=== PATIENT | male | born 1995 | race Caucasian/White ===

== ENCOUNTER 2024-05-08 09:05 | Emergency (ER) | payer MEDICAID, SELFPAY ==
[2024-05-08 09:06] VITALS: BMI 26.4
[2024-05-08 09:11] VITALS: BP 121/76; PULSE 76; RESP 18; TEMP 36.5; O2SAT 97; BMI 28.8
--- NOTE | 2024-05-08 09:28 | EKG_ITS ---
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
--- NOTE | 2024-05-08 09:28 | XR_ITS ---
Examination: PA lateral chest 2 views TECHNIQUE: Upright PA lateral chest 2 views Exam date and time: May 08, 2024 0936 hours INDICATIONS: Coughing beginning 3 days ago. FINDINGS: Normal heart size Lungs are clear. The osseous structures are intact IMPRESSION: No active disease
--- NOTE | 2024-05-08 11:29 | EDNOTE_ITS ---
ED Chest Pain RME/HPI General Chief Complaint: Chest Pain Stated Complaint: THROBBING CHEST PAIN AND BODYACHES Time Seen by Provider: 05/08/24 09:19 Arrival date/time: 05/08/24 09:05 29-year-old male presents the emergency department today for complaints of throbbing chest pain and bodyaches patient reports cough and congestion as well. Limitations: no limitations Related Data Previous Rx's ?Medication ?Instructions ?Recorded hydrocodone 5 mg-acetaminophen 325 1 tab PO Q8H PRN pa in #8 tabs 08/21/21 mg tablet ibuprofen 600 mg tablet 600 mg PO TID PRN pain #14 t abs 08/21/21 tamsulosin 0.4 mg capsule (Flomax) 0.4 mg PO QDAY #10 caps 08/21/21 benzonatate 100 mg capsule 100 mg PO TID #14 caps 04/15 07/08 ibuprofen 600 mg tablet 600 mg PO Q6H #30 tabs 05/08 Allergies Allergy/AdvReac Type Severity Reaction Status Date / Time amoxicillin Allergy Severe Hives Verified 05/08/24 09:08 Penicillins Allergy Severe Hives Verified 05/08/24 09:08 Review of Systems Review of Systems Systems Reviewed: All systems reviewed, normal except as documented Constitutional Constitutional: Reports system reviewed and no additional complaints, except as documented, Denies fever(s) and Denies headache(s) Eyes Eyes: Reports system reviewed and no additional complaints, except as documented and Denies blurry vision ENT Ears, Nose, Mouth, and Throat: Reports system reviewed and no additional complaints, except as documented, Denies headache(s), Denies nasal congestion and Denies nasal discharge Cardiovascular Cardiovascular: Reports system reviewed and no additional complaints, except as documented, Reports chest pain and Denies dyspnea Respiratory Respiratory: Reports system reviewed and no additional complaints, except as documented, Reports chest congestion, Reports cough and Denies dyspnea Gastrointestinal Gastrointestinal: Reports system reviewed and no additional complaints, except as documented and Denies abdominal pain Integumentary/Breasts Skin/Breast: Reports system reviewed and no additional complaints, except as documented and Denies rash Neurologic Neurologic: Reports system reviewed and no additional complaints, except as documented, Reports as per HPI and Denies headache(s) Past Medical History Past Medical History NEUROLOGIC: Negative Neurological Disorders or Seizures CARDIAC: Negative Cardiac Disorders or Congestive Heart Failure RESPIRATORY: Negative Chronic Obstructive Pulmonary Disease (COPD) GASTROINTESTINAL: Positive Gastrointestinal Disorders and Gastroesophageal Reflux Disease GENITOURINARY: Negative Genitourinary Disorders or Renal Disease MUSCULOSKELETAL: Positive Musculoskeletal Disorders ENDOCRINE: Negative Endocrine Disorders, Diabetes Mellitus Type 1 or Diabetes Mellitus Type 2 HEMATOLOGIC: Negative Blood Disorders PSYCHO/SOCIAL: Positive Depression and Anxiety OTHER HISTORY: Negative Autoimmune Disease, Blood Transfusions, Blood Transfusion Reaction, Anesthesia Reactions, MRSA, Clostridium Difficile or Cancer Family History FAMILY HISTORY: Negative Family Cardiac Disorders Surgical History SURGICAL: Negative Endocrine Surgery, Ear Surgery, Abdominal Surgery, Nephrectomy, Joint Replacement, Neurologic Surgery or Mastectomy Social History SMOKING STATUS: Current every day smoker SUBSTANCE USE: marijuana ED Exam General Limitations: Present no limitations General appearance: Present alert and in no apparent distress Head Head exam: Present atraumatic Eye Eye exam: Present normal appearance, PERRL and EOMI Neck Neck exam: Present normal inspection, full ROM and trachea midline Chest Chest inspection: Present normal inspection and symmetric chest wall rise Respiratory Respiratory exam: Present other (Did not auscultate lungs patient left prior to auscultation) Abdominal Exam Abdominal exam: Present normal bowel sounds Extremities Exam Extremities exam: Present normal inspection and full ROM Back Exam Back exam: Present normal inspection and full ROM Neurological Exam Neurological exam: Present alert, oriented X3, CN II-XII intact, normal gait and reflexes normal; Absent motor sensory deficit Psychiatric Psychiatric exam: Present normal affect and normal mood Skin Skin exam: Present warm, dry, intact and normal color Course Quality Measures none Orders Category Date Time Status Bedside Influenza A&B Antigen Test NOW Care 05/08/24 09:28 Completed EKG (ED ONLY) *Do not use* NOW Care 05/08/24 09:28 Completed EKG (ED Only) Stat Exams 05/08/24 09:28 Draft XR chest 2V Stat Exams 05/08/24 09:28 Completed Vital Signs Vital signs: Vital Signs Temperature 97.7 F 05/08/24 09:11 Pulse Rate 76 05/08/24 09:11 Respiratory Rate 18 05/08/24 09:11 Blood Pressure 121/76 05/08/24 09:11 Pulse Oximetry (%) 97 05/08/24 09:11 Oxygen Delivery Method Room Air 05/08/24 09:11 O2 saturation 97% room air wnl Procedures -ED EKG Interpretation #1: Date of EK05/08/24 Time of EK:30 Rate: 78 Interpretation: Interpreted by me EKG Impression: Normal sinus rhythm, No acute ST-T changes, No ectopy, No ischemic changes, Normal QRS and Normal intervals Chest Pain MDM Narrative [facility] Narrative:: 29-year-old male presents the emergency department today for complaints of throbbing chest pain and bodyaches patient reports cough and congestion as well. On exam patient well-appearing patient does not appear ill or toxic in no acute distress patient has no tachypnea or dyspnea no increased work of breathing Imaging and EKG obtained as well as lab work Imaging is unremarkable EKG unremarkable lab work unremarkable Prior to discharge full physical exam was to be completed patient left prior to lung auscultation. Patient discharged home in no distress to follow-up with primary care doctor in the next 24 to 48 hours and for any worsening symptoms to return to the ER immediately Patient data External records reviewed:: [facility] previous records Clinical information provided by:: patient Social determinants that could affect healthcare access:: none Patient has the following chronic illnesses:: See history How is presenting disease/condition affected by chronic disease/condition?: uneffected by Evaluation data The following diagnostics were reviewed and interpreted by me:: lab results, radiology exam(s) and EKG tracing(s) Lab and/or radiology exams considered but not ordered:: Labs, radiology, EKG obtained Interpretation Summary: Reviewed by me Medications / Prescriptions Medications or Prescriptions considered but not ordered:: Rx given Medication administrations:: Rx given Consultations Consultation(s) initiated? (list below): No Diagnosis Chest Pain Differential Diagnosis: fracture of rib, pneumothorax, stable angina, atypical chest pain, st elevation myocardial infarction, costochondritis and chest pain Most likely diagnosis given after review of the tests above:: Chest pain Admission Indicated Admission indicated?: not indicated Admission Request Was there a request for admission?: No Disposition Plan Disposition Plan: Discharge Discharge Attestation Discharge Attestation: The patient and all family members were given an opportunity to ask questions and understood the discharge instructions. Discharge instructions specifically effects, indications for sooner follow up or return to the emergency department, and the expected course of current diagnosis. Patient condition: Stable Discharge Plan Plan Patient Disposition: HOME (Self Care) Disposition Comment: Stable Prescriptions/Referrals Prescriptions/Med Rec: New benzonatate 100 mg capsule 100 mg PO TID Qty: 14 0RF ibuprofen 600 mg tablet 600 mg PO Q6H Qty: 30 0RF No Action hydrocodone-acetaminophen 5-325 mg tablet 1 tab PO Q8H MDD 3 PRN (Reason: pain) Qty: 8 0RF ibuprofen 600 mg tablet 600 mg PO TID PRN (Reason: pain) Qty: 14 0RF tamsulosin [Flomax] 0.4 mg capsule 0.4 mg PO QDAY Qty: 10 0RF Referrals: No Primary/Family,Physician [Primary Care Provider] - 05/09/24 Problem List Clinical Impression: Chest pain, non-cardiac, Cough Patient/Caregiver Discharge Instructions Education Materials: ED Chest Pain, Noncardiac Additional Instructions: Please follow up with your primary care doctor in the next 24-48hrs for any worsening symptoms return here immediately Print Language: Jamaican Stand Alone Forms: [employer] Award Info., Work/School Release, Patient Portal Info Letter PA/TELEPHONE OPERATOR Supervising Physician PA/TELEPHONE OPERATOR Supervising Physician: Dr Zimmer
== END 2024-05-08 11:58 | disposition home or self-care (01) ==
PROVIDERS: Emergency Provider Emergency Medicine
DX: R07.89 Other chest pain (principal); R05.9 Cough, unspecified
CPT/HCPCS: 71046; 87400; 93005; 99283

== ENCOUNTER 2024-05-09 14:10 | Emergency (ER) | payer MEDICAID, SELFPAY ==
[2024-05-09 14:13] VITALS: BMI 26.4
[2024-05-09 14:22] VITALS: BP 125/76; PULSE 108; RESP 20; TEMP 36.7; O2SAT 96
--- NOTE | 2024-05-09 14:23 | EKG_ITS ---
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
--- NOTE | 2024-05-09 14:25 | EDNOTE_ITS ---
ED Chest Pain RME/HPI General Chief Complaint: Flu Like Symptoms Stated Complaint: COUGH, SHARP PAIN IN CHEST TO BACK, N/V X 3 DAYS Time Seen by Provider: 05/09/24 14:14 Source: patient Arrival date/time: 05/09/24 14:10 29-year-old male with no known medical history presents to the emergency room with a chief complaint of cough, right-sided sternal chest pain x 2 days, nausea, vomiting Mode of arrival: ambulatory Limitations: no limitations Related Data Previous Rx's ?Medication ?Instructions ?Recorded hydrocodone 5 mg-acetaminophen 325 1 tab PO Q8H PRN pa in #8 tabs 08/21/21 mg tablet ibuprofen 600 mg tablet 600 mg PO TID PRN pain #14 t abs 08/21/21 tamsulosin 0.4 mg capsule (Flomax) 0.4 mg PO QDAY #10 caps 08/21/21 benzonatate 100 mg capsule 100 mg PO TID #14 caps 04/15 07/08 ibuprofen 600 mg tablet 600 mg PO Q6H #30 tabs 05/08 Allergies Allergy/AdvReac Type Severity Reaction Status Date / Time amoxicillin Allergy Severe Hives Verified 05/09/24 14:16 Penicillins Allergy Severe Hives Verified 05/09/24 14:16 Review of Systems Review of Systems Systems Reviewed: All systems reviewed, normal except as documented Constitutional Constitutional: Reports system reviewed and no additional complaints, except as documented, Denies fatigue, Denies fever(s), Denies headache(s) and Denies weakness Eyes Eyes: Reports system reviewed and no additional complaints, except as documented, Denies blurry vision and Denies change in vision ENT Ears, Nose, Mouth, and Throat: Reports system reviewed and no additional complaints, except as documented, Denies otalgia, Denies headache(s), Denies nasal congestion, Denies throat swelling and Denies vertigo Cardiovascular Cardiovascular: Reports system reviewed and no additional complaints, except as documented, Reports chest pain, Reports dyspnea and Denies dyspnea on exertion Respiratory Respiratory: Reports system reviewed and no additional complaints, except as documented, Denies chest congestion, Denies cough, Reports dyspnea, Denies dyspnea on exertion and Denies wheezing Gastrointestinal Gastrointestinal: Reports system reviewed and no additional complaints, except as documented, Denies abdominal pain, Denies cramping, Denies nausea and Denies vomiting Genitourinary Genitourinary: Reports system reviewed and no additional complaints, except as documented, Denies dysuria and Denies hematuria Musculoskeletal Musculoskeletal: Reports system reviewed and no additional complaints, except as documented and Denies back pain Integumentary/Breasts Skin/Breast: Reports system reviewed and no additional complaints, except as documented and Denies wounds Neurologic Neurologic: Reports system reviewed and no additional complaints, except as documented, Denies confusion, Denies headache(s), Denies lack of coordination, Denies vertigo and Denies weakness Psychiatric Psychiatric: Reports system reviewed and no additional complaints, except as documented, Denies anxiety, Denies confusion, Denies depression, Denies paranoia, Denies suicidal ideation and Denies tactile hallucinations Endocrine Endocrine: Reports system reviewed and no additional complaints, except as documented and Denies fatigue Hematologic/Lymphatic Hematologic/Lymphatic: Reports system reviewed and no additional complaints, except as documented and Denies lymphadenopathy Allergic/Immunologic Allergic/Immunologic: Reports system reviewed and no additional complaints, except as documented, Denies throat swelling, Denies urticaria and Denies wheezing Past Medical History Past Medical History NEUROLOGIC: Negative Neurological Disorders or Seizures CARDIAC: Negative Cardiac Disorders or Congestive Heart Failure RESPIRATORY: Negative Chronic Obstructive Pulmonary Disease (COPD) GASTROINTESTINAL: Positive Gastrointestinal Disorders and Gastroesophageal Reflux Disease GENITOURINARY: Negative Genitourinary Disorders or Renal Disease MUSCULOSKELETAL: Positive Musculoskeletal Disorders ENDOCRINE: Negative Endocrine Disorders, Diabetes Mellitus Type 1 or Diabetes Mellitus Type 2 HEMATOLOGIC: Negative Blood Disorders PSYCHO/SOCIAL: Positive Depression and Anxiety OTHER HISTORY: Negative Autoimmune Disease, Blood Transfusions, Blood Transfusion Reaction, Anesthesia Reactions, MRSA, Clostridium Difficile or Cancer Family History FAMILY HISTORY: Negative Family Cardiac Disorders Surgical History SURGICAL: Negative Endocrine Surgery, Ear Surgery, Abdominal Surgery, Nephrectomy, Joint Replacement, Neurologic Surgery or Mastectomy Social History SMOKING STATUS: Current every day smoker SUBSTANCE USE: marijuana ED Exam General Limitations: Present no limitations General appearance: Present alert and in no apparent distress Head Head exam: Present atraumatic Eye Eye exam: Present normal appearance, PERRL and EOMI ENT ENT exam: Present normal exam, normal oropharynx and mucous membranes moist Neck Neck exam: Present normal inspection, full ROM and trachea midline Chest Chest inspection: Present normal inspection and symmetric chest wall rise Respiratory Respiratory exam: Present normal lung sounds bilaterally; Absent respiratory distress, wheezes, stridor, accessory muscle use or prolonged expiratory phase Cardiovascular Cardiovascular exam: Present regular rate, normal rhythm, normal heart sounds, +S1 and +S2; Absent bradycardia, tachycardia or irregular rhythm Abdominal Exam Abdominal exam: Present soft and normal bowel sounds Extremities Exam Extremities exam: Present normal inspection and full ROM Back Exam Back exam: Present normal inspection and full ROM Neurological Exam Neurological exam: Present alert, oriented X3 and CN II-XII intact Psychiatric Psychiatric exam: Present normal affect and normal mood Skin Skin exam: Present warm, dry, intact and normal color Course Quality Measures none Orders Category Date Time Status EKG (ED ONLY) *Do not use* NOW Care 05/09/24 14:23 Completed EKG (ED Only) Stat Exams 05/09/24 14:23 Ordered B-Type Natriuretic Peptide Stat Lab 05/09/24 14:44 Completed CBC Stat Lab 05/09/24 14:44 Completed Comprehensive Metabolic Panel Stat Lab 05/09/24 14:44 Completed Drug Screen,Urine Stat Lab 05/09/24 15:27 Completed Magnesium Stat Lab 05/09/24 14:44 Completed Partial Thromboplastin Time Stat Lab 05/09/24 14:44 Completed Prothrombin Time with INR Stat Lab 05/09/24 14:44 Completed Troponin I Stat Lab 05/09/24 14:44 Completed Urinalysis Stat Lab 05/09/24 15:27 Completed Ketorolac Inj [Toradol Inj] Med 05/09/24 14:24 Discontinued 30 mg IM X1 ONE Vital Signs Vital signs: Vital Signs Temperature 98.0 F 05/09/24 14:22 Pulse Rate 108 H 05/09/24 14:22 Respiratory Rate 20 05/09/24 14:22 Blood Pressure 125/76 05/09/24 14:22 Pulse Oximetry (%) 96 05/09/24 14:22 Oxygen Delivery Method Room Air 05/09/24 14:22 O2 saturation 96% within normal limits Procedures -ED EKG Interpretation #1: Date of EK05/09/24 Rate: 78 Interpretation: Reviewed by me EKG Impression: Normal sinus rhythm Additional EKG comment: EKG shows normal sinus rhythm at [address] deviation Chest Pain MDM Narrative MDM Narrative:: 29-year-old male with no known medical history presents to the emergency room with a chief complaint of cough, right-sided sternal chest pain x 2 days, nausea, vomiting Patient is hemodynamically stable and in no apparent distress Physical examination shows right sided 6 out of 10 sternal chest pain that radiates to the patient's right arm. Patient states he is also having shortness of breath Physical examination shows clear bilateral lung sounds with no wheezing or any abnormal breath sounds EKG was completed and shows normal sinus rhythm at [address] deviation CBC CMP and troponin were all negative Patient was discharged and educated to follow-up with primary care provider in the next 24 to 48 hours and return to the emergency room for any evidence of worsening signs or symptoms Patient data External records reviewed:: [facility] previous records Clinical information provided by:: patient Social determinants that could affect healthcare access:: none Patient has the following chronic illnesses:: No chronic illness How is presenting disease/condition affected by chronic disease/condition?: no chronic disease Evaluation data The following diagnostics were reviewed and interpreted by me:: lab results and radiology exam(s) Lab and/or radiology exams considered but not ordered:: Labs and radiology exams considered and ordered Interpretation Summary: N/A Medications / Prescriptions Medications or Prescriptions considered but not ordered:: Medication given Medication administrations:: Medication Administration History Discontinued Medications Ketorolac Tromethamine (Ketorolac Inj 60 Mg/2 Ml Vial) 30 mg IM X1 ONE Stop: 05/09/24 14:25 Last Admin: 05/09/24 15:12 Dose: 30 mg Documented By: MP Medication given Consultations Consultation(s) initiated? (list below): No Diagnosis Chest Pain Differential Diagnosis: stable angina, atypical chest pain, st elevation myocardial infarction, costochondritis and chest pain Most likely diagnosis given after review of the tests above:: Chest pain Admission Indicated Admission indicated?: not indicated Admission Request Was there a request for admission?: No Disposition Plan Disposition Plan: Discharge Discharge Attestation Discharge Attestation: The patient and all family members were given an opportunity to ask questions and understood the discharge instructions. Discharge instructions specifically effects, indications for sooner follow up or return to the emergency department, and the expected course of current diagnosis. Patient condition: Stable Discharge Plan Plan Patient Disposition: HOME (Self Care) Disposition Comment: Stable Prescriptions/Referrals Prescriptions/Med Rec: No Action hydrocodone-acetaminophen 5-325 mg tablet 1 tab PO Q8H MDD 3 PRN (Reason: pain) Qty: 8 0RF ibuprofen 600 mg tablet 600 mg PO TID PRN (Reason: pain) Qty: 14 0RF tamsulosin [Flomax] 0.4 mg capsule 0.4 mg PO QDAY Qty: 10 0RF benzonatate 100 mg capsule 100 mg PO TID Qty: 14 0RF ibuprofen 600 mg tablet 600 mg PO Q6H Qty: 30 0RF Referrals: Ila Chandra PA-C [Primary Care Provider] - In 1 week Problem List Clinical Impression: Chest pain, non-cardiac Patient/Caregiver Discharge Instructions Education Materials: ED Chest Pain, Noncardiac Additional Instructions: Please follow-up with your primary care provider in the next 24 to 48 hours. Your cardiac examination was negative. Your EKG was within normal limits. Your blood work was within normal limits. For any evidence of worsening signs or symptoms return to the emergency room im mediately Print Language: Icelandic Stand Alone Forms: [employer] Award Info., Patient Portal Info Letter ESTRELLITA/DEVENDRA Supervising Physician ESTRELLITA/DEVENDRA Supervising Physician: Dr Zimmer
[2024-05-09 14:54] LABS: Basophils # (Auto) 0.1 Thou/mm3 (0.0-0.2); Basophils % (Auto) 1 % (0-2.5); Eosinophils # (Auto) 0.2 Thou/mm3 (0.0-0.5); Eosinophils % (Auto) 2 % (0-10); Hematocrit 44.2 % (41.0-53.0); Hemoglobin 15.2 g/dL (13.5-16.0); Immature Granulocytes % (Auto) 0 % (0-0); Immature Granulocytes Auto 0.03 Thou/mm3 (0.00-0.00); Lymphocytes # (Auto) 1.8 Thou/mm3 (1.0-4.8); Lymphocytes % (Auto) 17 % (10-50); Mean Corpuscular HGB Conc 34.4 g/dl (31.0-37.0); Mean Corpuscular Hemoglobin 30.5 pg (25.0-35.0); Mean Corpuscular Volume 89 fL (80-100); Monocytes # (Auto) 1.2 Thou/mm3 (0.0-0.8); Monocytes % (Auto) 12 % (0-12); Neutrophils # (Auto) 7.2 Thou/mm3 (1.8-7.7); Neutrophils % (Auto) 69 % (37-80); Nucleated Red Blood Cell % 0 /100 WBC (0); Platelet Count 215 Thou/mm3 (140-440); RDW Standard Deviation 41.3 fL (35.1-43.9); Red Blood Count 4.99 Miln/mm3 (4.50-5.90); White Blood Count 10.5 Thou/mm3 (3.8-10.6)
[2024-05-09 15:08] LABS: INR 0.9 (0.9-1.3); Prothrombin Time 10.3 Seconds (9.0-12.2)
[2024-05-09 15:11] LABS: B-Type Natriuretic Peptide 38 pg/mL (0-100)
[2024-05-09] MEDS: KETOROLAC INJ 60 MG/2 ML VIAL 30 MG IM (15:12)
[2024-05-09 15:13] LABS: Alanine Aminotransferase 30 U/L (10-49); Albumin, Serum 4.6 gm/dL (3.5-5.0); Albumin/Globulin Ratio 2.2 (1.2-2.2); Alkaline Phosphatase 63 U/L (46-116); Anion Gap 6 (7-16); Aspartate Amino Transferase 37 U/L (0-34); BUN/Creatinine Ratio 8 Ratio (12-20); Bilirubin,Total 0.4 mg/dL (0.3-1.2); Blood Urea Nitrogen 8 mg/dL (9-23); Calcium 9.7 mg/dL (8.3-10.6); Calcium (Corrected) 9.7 mg/dL (8.5-10.1); Carbon Dioxide 30.2 mMol/L (20.0-31.0); Chloride 105 mMol/L (98-107); Globulin 2.1 gm/dL (2.3-3.5); Glucose 88 mg/dL (74-106); Magnesium 1.9 mg/dL (1.6-2.6); Osmolality,Calculated 278 (275-295); Potassium 3.7 mMol/L (3.4-5.1); Sodium 141 mMol/L (136-145); Total Protein 6.7 gm/dL (5.7-8.2); Troponin I < 0.002 ng/mL (0.0-0.045); eGFR > 60 See Note
[2024-05-09 15:36] LABS: Collection Type, Urine Clean Catch
[2024-05-09 16:00] LABS: Bacteria,Urine Rare; Bilirubin,Urine Negative (Negative); Blood,Urine Negative (Negative); Clarity,Urine Clear (Clear/Hazy); Color,Urine Lt-Yellow (Lt Yel-Yel); Glucose, Urine Negative (Negative); Ketones,Urine Negative (Negative); Leukocyte Esterase,Urine Negative (Negative); Nitrite,Urine Negative (Negative); PH,Urine 6.5 (5.0-7.0); Protein,Urine Negative (Neg - Trace); RBC,Urine 1 /hpf (0-3); Specific Gravity,Urine 1.019 (1.001-1.035); Squamous Epithelial Cell,Urine < 1 /hpf (0-5); Urobilinogen,Urine Negative mg/dL (0.0-1.0); WBC,Urine 2 /hpf (0-5)
[2024-05-09 16:01] LABS: Amphetamine/Methamp Scrn,U Negative (Negative); Barbiturate Screen,Urine Negative (Negative); Benzodiazepines Screen,Urine Negative (Negative); Benzoylecgonine Screen, Ur Negative (Negative); Fentanyl Screen,Urine Negative (Negative); Opiate Screen,Urine Negative (Negative); THC Screen,Urine Positive (Negative)
== END 2024-05-09 16:51 | disposition home or self-care (01) ==
PROVIDERS: Nurse Practitioner Family; Emergency Provider Emergency Medicine; PCP Physician Assistant
DX: R07.89 Other chest pain (principal); I49.8 Other specified cardiac arrhythmias; I45.10 Unspecified right bundle-branch block
CPT/HCPCS: 36415; 80053; 80307; 81001; 83735; 83880; 84484; 85025; 85610; 85730; 93005; 96372; 99283; J1885

== ENCOUNTER 2024-05-19 05:10 | Emergency (ER) | payer MEDICAID, SELFPAY ==
[2024-05-19 05:11] VITALS: BMI 26.4
[2024-05-19 05:19] VITALS: BP 123/79; PULSE 122; RESP 19; TEMP 37.1; O2SAT 97
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
--- NOTE | 2024-05-19 05:46 | PC.NURSE ---
GERSON MORRISSEY NUMBER [id number], FROM DISPATCH CALLED AND STATED SHE WILL BE SENDING AN OFFICER TO SPEAK TO PT.
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
[2024-05-19 06:37] VITALS: BP 105/76; PULSE 118; RESP 18; TEMP 36.9; O2SAT 98
--- NOTE | 2024-05-19 06:44 | PC.NURSE ---
Pt not cooperative with care, cursing and yelling. Threatening to leave, enc to relax and reassured with plan of care.
--- NOTE | 2024-05-19 06:53 | PC.NURSE ---
PPD here to see pt.
[2024-05-19] MEDS: oxyCODONE/APAP 5/325 TABLET 1 TAB PO (07:08)
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
== END 2024-05-19 07:15 | disposition left against medical advice (07) ==
PROVIDERS: Emergency Provider Emergency Medicine
DX: S05.12XA Contusion of eyeball and orbital tissues, left eye, initial encounter (principal); S05.11XA Contusion of eyeball and orbital tissues, right eye, initial encounter; S09.90XA Unspecified injury of head, initial encounter; Y04.0XXA Assault by unarmed brawl or fight, initial encounter
CPT/HCPCS: 99281; A9270

== ENCOUNTER 2024-10-09 18:42 | Emergency (ER) | payer MEDICAID, SELFPAY ==
[2024-10-09 18:48] VITALS: BMI 25.7
[2024-10-09 18:49] VITALS: BP 125/89; PULSE 100; RESP 20; TEMP 36.4; O2SAT 95
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
[2024-10-09 19:31] LABS: Basophils # (Auto) 0.1 Thou/mm3 (0.0-0.2); Basophils % (Auto) 1 % (0-2.5); Eosinophils # (Auto) 0.1 Thou/mm3 (0.0-0.5); Eosinophils % (Auto) 1 % (0-10); Hematocrit 46.9 % (41.0-53.0); Hemoglobin 16.3 g/dL (13.5-16.0); Immature Granulocytes Auto 0.03 Thou/mm3 (0.00-0.00); Lymphocytes # (Auto) 1.8 Thou/mm3 (1.0-4.8); Lymphocytes % (Auto) 19 % (10-50); Mean Corpuscular HGB Conc 34.8 g/dl (31.0-37.0); Mean Corpuscular Hemoglobin 31.2 pg (25.0-35.0); Mean Corpuscular Volume 90 fL (80-100); Monocytes # (Auto) 0.8 Thou/mm3 (0.0-0.8); Monocytes % (Auto) 8 % (0-12); Neutrophils # (Auto) 6.4 Thou/mm3 (1.8-7.7); Neutrophils % (Auto) 70 % (37-80); Nucleated Red Blood Cell # 0.00 Thou/mm3 (0.00-0.00); Nucleated Red Blood Cell % 0 /100 WBC (0); Platelet Count 267 Thou/mm3 (140-440); RDW Standard Deviation 41.5 fL (35.1-43.9); Red Blood Count 5.23 Miln/mm3 (4.50-5.90); White Blood Count 9.2 Thou/mm3 (3.8-10.6)
[2024-10-09 19:53] LABS: Acetaminophen < 2.0 mcg/mL (10.0-20.0); Alanine Aminotransferase 19 U/L (10-49); Albumin, Serum 4.9 gm/dL (3.5-5.0); Albumin/Globulin Ratio 2.0 (1.2-2.2); Alcohol, Blood Medical 90.3 mg/dL (0-10.0); Alkaline Phosphatase 62 U/L (46-116); Anion Gap 12 (7-16); Aspartate Amino Transferase 11 U/L (0-34); BUN/Creatinine Ratio 6 Ratio (12-20); Bilirubin,Total 1.0 mg/dL (0.3-1.2); Blood Urea Nitrogen 6 mg/dL (9-23); Calcium 10.1 mg/dL (8.3-10.6); Calcium (Corrected) 10.1 mg/dL (8.5-10.1); Carbon Dioxide 25.3 mMol/L (20.0-31.0); Chloride 107 mMol/L (98-107); Creatinine (Component) 1.0 mg/dL (0.6-1.3); Estimated Creatinine Clearance 114.0 mL/min (>60); Globulin 2.4 gm/dL (2.3-3.5); Glucose 83 mg/dL (74-106); Osmolality,Calculated 283 (275-295); Potassium 3.5 mMol/L (3.4-5.1); Salicylate < 3.0 mg/dL; Sodium 144 mMol/L (136-145); Total Protein 7.3 gm/dL (5.7-8.2); eGFR > 60 See Note
[2024-10-09 21:30] LABS: Amphetamine/Methamp Scrn,U Negative (Negative); Barbiturate Screen,Urine Negative (Negative); Benzodiazepines Screen,Urine Negative (Negative); Benzoylecgonine Screen, Ur Positive (Negative); Fentanyl Screen,Urine Negative (Negative); Opiate Screen,Urine Negative (Negative); THC Screen,Urine Positive (Negative)
[2024-10-10 01:48] VITALS: BP 119/72; PULSE 85; RESP 16; TEMP 36.7; O2SAT 95
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
[2024-10-10] MEDS: IBUPROFEN TAB 600 MG TABLET PO (04:23)
[2024-10-10 05:54] VITALS: BP 123/68; PULSE 80; RESP 16; TEMP 36.7; O2SAT 95
--- NOTE | 2024-10-10 07:27 | EDNOTE_ITS ---
Emergency Room Addendum Addendum Narrative: Patient is a 29-year-old male with medical history notable for depression that is in the emergency department concerns for thoughts of self-harm. Prior provider evaluated patient, patient has a history of polysubstance use, workup notable for positive cocaine and marijuana. Also positive for alcohol. 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 He is hemodynamically stable, not in distress. Patient evaluated by social work, upheld patient's psychiatric hold. Patient is pending placement. Patient was accepted to [facility], transported hemodynamically stable nondistressed
--- NOTE | 2024-10-10 08:30 | PC.NURSE ---
BREAKFAST TRAY WAS PROVIDED.
[2024-10-10 08:58] LABS: Alcohol, Blood Medical < 3.0 mg/dL (0-10.0)
[2024-10-10 10:00] VITALS: BP 145/78; PULSE 61; RESP 19; TEMP 37.1
--- NOTE | 2024-10-10 10:02 | PC.SS ---
Addendum entered by CELSO Topete 10/10/24 11:37: WATER MAIN INSPECTOR coordinated transportation with [facility] ETA is 14:00. WATER MAIN INSPECTOR notified patient of acceptance to [facility] and transportation ETA, patient confirmed. Addendum entered by CELSO Topete 10/10/24 11:18: Patient was accepted to [facility]. Addendum entered by CELSO Topete 10/10/24 10:54: Placement packet sent to the following facilities: [facility] Original Note: Patient is a 29 year old male presenting to the ED on 10/09/24 for danger to self. Patient brought himself in for SI w/ plan to use a knife on himself. Patient recently went through a breakup and is not coping with it well. SS met with patient at bedside role and reason explained for contact. Limits of confidentiality were explained to patient. ?Patient confirmed demographic information and stated he lives with roommate Leticia Galeas at [address] [place] [address] in [place]. Patient sated that he would like to keep his ex-girlfriend as his emergency contact. Patient shared that he was at home when he was having thoughts of hurting himself and brought himself in, he reported that he has a history of suicide attempt. His last attempt was two years ago when he took fentanyl thinking he would end his life. At the time of the attempt patient was not on a hold as he did not disclose to hospital staff that his plan was to hurt himself. Patient stated he is connected to a psychiatrist Dr. Peter with [facility] in [place] ([facility] Patient stated he was diagnosed with bipolar 1 and manic depression. He stated that he takes medication but did not disclose medication names. Patient stated he ?is good on taking medication? and stated he takes his medication every day. Patient stated his next appointment is in a week. Patient reports drug and alcohol use. Patient stated he used cocaine two days ago and consumed Vodka last night. He reports that he drinks alcohol about once a week. Patient reports that today he has bad anxiety but does not feel the same as yesterday. Patient denies thoughts of hurting other and reports that his mind only tells him to hurt himself. Patient denies past psych hospitalization. Patient stated that he has his children to live for and reports he sees them on the weekend. ARMEN Mcfarlane inquired if patient has support or anyone SS can call to have safety plan. Patient stated he does not have anyone and stated he does not want his roommate Leticia to know. He stated that he has no one to safety plan with. ARMEN Mcfarlane inquired if patient is agreeable that he needs support, Patient stated yes. Patient reports that he has had suicidal thoughts for the last four weeks. During the contact patient was cooperative and able to engage in conversation however patient became very tearful when asked about his support system. Patient also became tearful expressing the last events that have transpired in the last couple of weeks. Patient expressed not being able to sleep in the last couple of days. ?ARMEN informed patient that due to danger to self, continuing thoughts of suicidal ideation, and not being able to safety plan for a safe d/c patient will have to stay on a hold. Patient was agreeable to placement at a psychiatric hospital. ARMEN Mcfarlane made patient aware of 5150 advisement information. CELSO Pablo provided patient with patient rights handbook.
--- NOTE | 2024-10-10 11:10 | PC.NURSE ---
SPOKE WITH JOSE DE JESUS RN WITH [facility]. PT ACCEPTED TO [facility] BY DR FRANCES TO UNIT 3. NURSE TO NURSE REPORT DONE. REQUESTING CALL BACK WITH ETA AND ANY CHANGED OR UPDATES. CALL BACK NUMBER IS [phone].
[2024-10-10 12:00] VITALS: BP 133/77; PULSE 80; RESP 18; TEMP 36.7
--- NOTE | 2024-10-10 13:29 | PC.NURSE ---
ems here to product picker pt for transport to [facility].
[2024-10-10 13:30] VITALS: BP 130/60; PULSE 79; RESP 18; TEMP 36.6; O2SAT 96
== END 2024-10-10 13:30 ==
PROVIDERS: Physician Assistant; Emergency Provider Emergency Medicine
DX: R45.851 Suicidal ideations (principal); F32.9 Major depressive disorder, single episode, unspecified; F19.10 Other psychoactive substance abuse, uncomplicated; F14.10 Cocaine abuse, uncomplicated; Z75.1 Person awaiting admission to adequate facility elsewhere
CPT/HCPCS: 36415; 80053; 80307; 80320; 80329; 85025; 96127; 99284; A9270; G0480

== ENCOUNTER 2025-01-27 09:19 | Emergency (ER) | payer MEDICAID, SELFPAY ==
[2025-01-27 09:19] VITALS: BMI 28.7
[2025-01-27 09:30] VITALS: BP 111/71; PULSE 100; RESP 18; TEMP 36.6; O2SAT 97
[2025-01-27] MEDS: KETOROLAC INJ 30 MG/ML VIAL IM (09:45)
--- NOTE | 2025-01-27 09:53 | EDNOTE_ITS ---
<Statement entered by Makayla Vaca MD - 01/27/25 11:58> As co-signing physician, I was present and available for consult prn. I concur with the plan and care as documented by the midlevel provider. ED Dental RME/HPI General Chief complaint: Dental/Oral/Throat Stated complaint: BILAT. WISDOM TEETH INFECTION; CONGESTED Time Seen by Provider: 01/27/25 09:21 Arrival date/time: 01/27/25 09:19 RME / HPI RME / HPI Narrative: 29-year-old male complaining of bilateral wisdom teeth pain for 2 weeks. Patient states that he went to a dentist who said that he needs a referral so he went back to his primary care doctor and now he has an appointment scheduled in the next 2 weeks with a dentist. Denies any trouble swallowing, shortness of breath, nausea, vomiting, fever. Related Data Previous Rx's ?Medication ?Instructions ?Recorded hydrocodone 5 mg-acetaminophen 325 1 tab PO Q8H PRN pa in #8 tabs 08/21/21 mg tablet ibuprofen 600 mg tablet 600 mg PO TID PRN pain #14 t abs 08/21/21 tamsulosin 0.4 mg capsule (Flomax) 0.4 mg PO QDAY #10 caps 08/21/21 benzonatate 100 mg capsule 100 mg PO TID #14 caps 04/15 07/08 ibuprofen 600 mg tablet 600 mg PO Q6H #30 tabs 05/08 Saccharomyces boulardii 250 mg 250 mg PO BID #30 caps 01/27/25 capsule (Florastor) chlorhexidine gluconate 0.12 % 15 ml buccal BID #118 m L 01/27/25 mouthwash clindamycin HCl 300 mg capsule 300 mg PO Q6H #28 caps 01/27/25 (Cleocin HCl) naproxen 500 mg tablet,delayed 500 mg PO Q12H #14 tabs 01/27/25 release Allergies Allergy/AdvReac Type Severity Reaction Status Date / Time amoxicillin Allergy Severe Hives Verified 01/27/25 09:22 Penicillins Allergy Severe Hives Verified 01/27/25 09:22 ED Exam Narrative Physical exam: Constitutional: Patient alert and oriented. Well appearing. No acute distress. Not toxic appearing. Head: Normocephalic, atraumatic. Eyes: Periorbital regions bilaterally normal to inspection. Conjunctiva clear bilaterally. Sclera anicteric bilaterally. Pupils equal, round, reactive to light bilaterally. Extraocular movements intact bilaterally. Ears: External ears normal to inspection bilaterally. No mastoid tenderness bilaterally. EAC without edema or exudate bilaterally. TMs without erythema or bulging. Mouth/Throat: Mucous membranes moist. No stridor or muffled voice. Uvula midline. Rise and fall of soft palate normal. No tonsillar edema or exudate. No peritonsillar fullness. No trismus. Handling secretions without difficulty. Airway widely patent. Positive tenderness to palpation, edema noted to the first molars of his lower jaw bilaterally. No tenderness at the floor of his mouth. Neck: Supple. Trachea midline. No JVD. No nuchal rigidity. No midline tenderness or step-offs. Normal range of motion. Respiratory: Normal effort. No accessory muscle use or respiratory distress. Lungs clear to auscultation bilaterally without rhonchi, wheezes, or crackles. Back: No midline tenderness or step-offs. No CVA tenderness to palpation bilaterally. Upper Extremities: No gross deformities. Lower Extremities: No gross deformities. No edema or calf tenderness. Neuro: Speech normal. No gross motor or sensory deficits to upper or lower extremities bilaterally. GCS 15. CN II?XII grossly intact. Skin: Warm, dry, normal color. Psych: Normal affect. Cooperative. Normal insight. Course Quality Measures none Orders Category Date Time Status HYDROcodone/APAP 10/325 [Archer 10/325] Med 01/27/25 09:35 Discontinued 1 tab PO X1 ONE Ketorolac Inj [Toradol Inj] Med 01/27/25 09:35 Discontinued 30 mg IM X1 ONE Vital Signs Vital signs: Vital Signs Temperature 98 F 01/27/25 09:30 Pulse Rate 100 01/27/25 09:30 Respiratory Rate 18 01/27/25 09:30 Blood Pressure 111/71 01/27/25 09:30 Pulse Oximetry (%) 97 01/27/25 09:30 Oxygen Delivery Method Room Air 01/27/25 09:30 Dental / Oral MDM Narrative MDM Narrative:: MDM Suspect: pulpitis vs periodontitis No induration on floor of mouth to suggest Ludwigs Angina No mass effect or extension into orbits, no pain with EOM No mass effect in OP cavity or trismus to suggest para pharyngeal abscess or PARK [employer]ENDANT No acute necrotizing ulcerative gingivitis or vincents angina given patency of airway and localization of infection No complications ie signs or symptoms of endocarditis/bacteremia/CLIENT EXPERIENCE CONSULTANT infection No appreciation for superficial fluctuance to suggest a drainable ralph-apical abscess today however can not exclude early formation Advised salt water rinses 5 times daily, soft diet, clindamycin, pain management chlorhexidine, f/u with pmd and dentist/omsf 1-2 days, strict return precautions advised. Patient data External records reviewed:: [facility] previous records Clinical information provided by:: patient Social determinants that could affect healthcare access:: none Patient has the following chronic illnesses:: As noted How is presenting disease/condition affected by chronic disease/condition?: uneffected by Evaluation data The following diagnostics were reviewed and interpreted by me:: other (specify) Lab and/or radiology exams considered but not ordered:: Additional Labs and radiology considered, but not ordered as they were not clinically indicated at this time. Interpretation Summary: None Medications / Prescriptions Medications or Prescriptions considered but not ordered:: I ordered medications based on the patient?s clinical needs and assessment, as documented in the chart. For medications not prescribed, they were not indicated for the patient's current condition, and I determined they were unnecessary at this time to avoid potential risks or complications. Medication administrations:: Medication Administration History Discontinued Medications Hydrocodone Bitart/Acetaminophen (Hydrocodone/Apap 10/325 Tab) 1 tab PO X1 ONE Stop: 01/27/25 09:36 Last Admin: 01/27/25 09:45 Dose: 1 tab Documented By: Ketorolac Tromethamine (Ketorolac Inj 30 Mg/Ml Vial) 30 mg IM X1 ONE Stop: 01/27/25 09:36 Last Admin: 01/27/25 09:45 Dose: 30 mg Documented By: As noted Consultations Consultation(s) initiated? (list below): No Diagnosis Dental Differential Diagnosis: toothache Most likely diagnosis given after review of the tests above:: As noted Admission Indicated Admission indicated?: not indicated Admission Request Was there a request for admission?: No Disposition Plan Disposition Plan: Discharge Discharge Attestation Discharge Attestation: The patient and all family members were given an opportunity to ask questions and understood the discharge instructions. Discharge instructions specifically effects, indications for sooner follow up or return to the emergency department, and the expected course of current diagnosis. Patient condition: Stable Discharge Plan Plan Patient Disposition: HOME (Self Care) Patient condition on transfer: Stable Prescriptions/Referrals Prescriptions/Med Rec: New clindamycin HCl [Cleocin HCl] 300 mg capsule 300 mg PO Q6H Qty: 28 0RF chlorhexidine gluconate 0.12 % mouthwash 15 ml buccal BID Qty: 118 0RF naproxen 500 mg tablet,delayed release (DR/EC) 500 mg PO Q12H Qty: 14 0RF Saccharomyces boulardii [Florastor] 250 mg capsule 250 mg PO BID Qty: 30 0RF No Action hydrocodone-acetaminophen 5-325 mg tablet 1 tab PO Q8H MDD 3 PRN (Reason: pain) Qty: 8 0RF ibuprofen 600 mg tablet 600 mg PO TID PRN (Reason: pain) Qty: 14 0RF tamsulosin [Flomax] 0.4 mg capsule 0.4 mg PO QDAY Qty: 10 0RF benzonatate 100 mg capsule 100 mg PO TID Qty: 14 0RF ibuprofen 600 mg tablet 600 mg PO Q6H Qty: 30 0RF Problem List Clinical Impression: Pain, dental Patient/Caregiver Discharge Instructions Education Materials: ED Dental Pain Additional Instructions: Follow up with your primary medical doctor and a dentist or an oral surgeon within 24 hours. Return to the Emergency Room immediately for any new, worsening, continuing symptoms or any concerns at all. Return to the Emergency Room within 24 hours if you are unable to follow up with your primary medical doctor and a dentist or an oral surgeon within 24 hours. Print Language: Ukrainian Stand Alone Forms: [employer] Award Info., Patient Portal Info Letter PA/TRIAL JUSTICE Supervising Physician PA/DEVENDRA Supervising Physician: Dr. Vaca
== END 2025-01-27 10:01 | disposition home or self-care (01) ==
LOC: SERX 10:00
PROVIDERS: Emergency Provider Physician Assistant
DX: K08.89 Other specified disorders of teeth and supporting structures (principal)
CPT/HCPCS: 96372; 99282; J1885; A9270

== ENCOUNTER 2025-01-28 11:01 | Emergency (ER) | payer MEDICAID, SELFPAY ==
[2025-01-28 11:16] VITALS: BP 125/83; PULSE 91; RESP 18; TEMP 36.5; O2SAT 96; BMI 29.4
--- NOTE | 2025-01-28 11:23 | EDNOTE_ITS ---
<Statement entered by Makayla Vaca MD - 01/29/25 17:48> As co-signing physician, I was present and available for consult prn. I concur with the plan and care as documented by the midlevel provider. ED General RME/HPI General Chief complaint: Dental/Oral/Throat Stated complaint: TOOTH PAIN Time Seen by Provider: 01/28/25 11:07 Arrival date/time: 01/28/25 11:01 CC: Dental pain HPI patient has had lower molar dental pain and has 2 days left for his appointment, patient states he was seen here yesterday was written for naproxen however the prescription was not available. The patient now continues to have pain. Patient denies fever chills chills shortness of breath difficulty swallowing or difficulty speaking no other complaints currently the pain is a 5 to a 7 on a 10 scale. Related Data Previous Rx's ?Medication ?Instructions ?Recorded hydrocodone 5 mg-acetaminophen 325 1 tab PO Q8H PRN pa in #8 tabs 08/21/21 mg tablet ibuprofen 600 mg tablet 600 mg PO TID PRN pain #14 t abs 08/21/21 tamsulosin 0.4 mg capsule (Flomax) 0.4 mg PO QDAY #10 caps 08/21/21 benzonatate 100 mg capsule 100 mg PO TID #14 caps 04/15 07/08 ibuprofen 600 mg tablet 600 mg PO Q6H #30 tabs 05/08 Saccharomyces boulardii 250 mg 250 mg PO BID #30 caps 01/27/25 capsule (Florastor) chlorhexidine gluconate 0.12 % 15 ml buccal BID #118 m L 01/27/25 mouthwash clindamycin HCl 300 mg capsule 300 mg PO Q6H #28 caps 01/27/25 (Cleocin HCl) naproxen 500 mg tablet,delayed 500 mg PO Q12H #14 tabs 01/27/25 release ibuprofen 800 mg tablet 800 mg PO Q8H #20 tabs 01/28 Allergies Allergy/AdvReac Type Severity Reaction Status Date / Time amoxicillin Allergy Severe Hives Verified 01/28/25 11:03 Penicillins Allergy Severe Hives Verified 01/28/25 11:03 Review of Systems Review of Systems Narrative Review of Systems: GEN: No fever, no chills, no weight loss EYES: No discharge, no visual changes, no pain HEENT: No ear pain, no congestion, no sore throat PULM: No shortness of breath, no cough, no congestion CV: No chest pain, no dyspnea on exertion, no palpitations GI: No nausea, no vomiting, no diarrhea, no pain, no constipation : No frequency, no urgency, no dysuria MUSC/SKEL: No joint pain, no back pain SKIN: No rash PSYCH: No hallucinations, no depression HEME/LYMPH: No easy bleeding or bruising tendencies NEURO: No weakness, no headache Past Medical History Past Medical History NEUROLOGIC: Negative Neurological Disorders or Seizures CARDIAC: Negative Cardiac Disorders or Congestive Heart Failure RESPIRATORY: Negative Chronic Obstructive Pulmonary Disease (COPD) GASTROINTESTINAL: Positive Gastrointestinal Disorders and Gastroesophageal Reflux Disease GENITOURINARY: Negative Genitourinary Disorders or Renal Disease MUSCULOSKELETAL: Positive Musculoskeletal Disorders ENDOCRINE: Negative Endocrine Disorders, Diabetes Mellitus Type 1 or Diabetes Mellitus Type 2 HEMATOLOGIC: Negative Blood Disorders PSYCHO/SOCIAL: Positive Depression and Anxiety OTHER HISTORY: Negative Autoimmune Disease, Blood Transfusions, Blood Transfusion Reaction, Anesthesia Reactions, MRSA, Clostridium Difficile or Cancer Family History FAMILY HISTORY: Negative Family Cardiac Disorders Surgical History SURGICAL: Negative Endocrine Surgery, Ear Surgery, Abdominal Surgery, Nephrectomy, Joint Replacement, Neurologic Surgery or Mastectomy Social History SMOKING STATUS: Current every day smoker SUBSTANCE USE: marijuana ED Exam Narrative Physical exam: [General: Obese not in cot no acute distress Head normocephalic HEENT: Mouth: [place] moist membranes uvula is midline swallow symmetrical phonation is normal. There gum folds overlapping the rear most molar bilaterally on the lower mandible. No surrounding erythema edema no exudate. Swallow symmetrical phonation is normal all other subsystems of HEENT are within acceptable limits Neck is supple nontender Chest equal chest rise nontender to palpation Respiratory: Clear to auscultation no wheezes crackles or rubs CV: Rate rhythm is regular no murmurs rubs or clicks Abdomen is distended secondary to body habitus soft nontender no masses positive bowel sounds all 4 quadrants Back: No CVA tenderness no spinous process tenderness from cervical spine thoracic and lumbar spine Skin: Intact no petechiae rash induration ulceration or crepitus Extremities: Moving all extremity against resistance cap refill less than 2 seconds neurosensory intact Neuro: Awake alert oriented x3 Glascow coma 15 no focal deficits] Course Quality Measures none Orders Category Date Time Status Ketorolac Inj [Toradol Inj] Med 01/28/25 11:22 Discontinued 15 mg IM X1 ONE oxyCODONE/APAP 5/325 [Percocet 5/325] Med 01/28/25 11:43 Discontinued 1 tab PO X1 ONE Vital Signs Vital signs: Vital Signs Temperature 97.7 F 01/28/25 11:16 Pulse Rate 91 01/28/25 11:16 Respiratory Rate 18 01/28/25 11:16 Blood Pressure 125/83 01/28/25 11:16 Pulse Oximetry (%) 96 01/28/25 11:16 Oxygen Delivery Method Room Air 01/28/25 11:16 Discharge Plan Plan Patient Disposition: HOME (Self Care) Patient condition on transfer: Stable Prescriptions/Referrals Prescriptions/Med Rec: New ibuprofen 800 mg tablet 800 mg PO Q8H Qty: 20 0RF No Action hydrocodone-acetaminophen 5-325 mg tablet 1 tab PO Q8H MDD 3 PRN (Reason: pain) Qty: 8 0RF ibuprofen 600 mg tablet 600 mg PO TID PRN (Reason: pain) Qty: 14 0RF tamsulosin [Flomax] 0.4 mg capsule 0.4 mg PO QDAY Qty: 10 0RF clindamycin HCl [Cleocin HCl] 300 mg capsule 300 mg PO Q6H Qty: 28 0RF chlorhexidine gluconate 0.12 % mouthwash 15 ml buccal BID Qty: 118 0RF naproxen 500 mg tablet,delayed release (DR/EC) 500 mg PO Q12H Qty: 14 0RF Saccharomyces boulardii [Florastor] 250 mg capsule 250 mg PO BID Qty: 30 0RF benzonatate 100 mg capsule 100 mg PO TID Qty: 14 0RF ibuprofen 600 mg tablet 600 mg PO Q6H Qty: 30 0RF Problem List Clinical Impression: Pain, dental Patient/Caregiver Discharge Instructions Other Activity Instructions:: Take the medication as prescribed follow-up with your dentist in 2 days. Education Materials: ED Dental Pain Print Language: Malian Stand Alone Forms: [employer] Award Info., Patient Portal Info Letter PA/WIRE LATHER Supervising Physician PA/WIRE LATHER Supervising Physician: Richard Hightower ENP MDM Clinical Information Provided by: patient Medical Records reviewed [facility] Meds/Rx considered, not ordered None Labs/Rad/Tests considered, not ordered None Chronic Illness/Social Conditions which may negatively complicate care or outcome(s)-explain: None or not applicable EKG EKG not done Labs Labs: none Imaging Imaging interpretation: none Medication Administration(s) none Medication Administration History Discontinued Medications Ketorolac Tromethamine (Ketorolac Inj 30 Mg/Ml Vial) 15 mg IM X1 ONE Stop: 01/28/25 11:23 Last Admin: 01/28/25 11:38 Dose: 15 mg Documented By: TAY Oxycodone/Acetaminophen (Oxycodone/Apap 5/325 Tablet) 1 tab PO X1 ONE Stop: 01/28/25 11:44 Last Admin: 01/28/25 11:49 Dose: 1 tab Documented By: TAY Diagnosis Differential Diagnosis ED Complaint MDM: Dental caries dental pain dental abscess.
[2025-01-28] MEDS: KETOROLAC INJ 30 MG/ML VIAL 15 MG IM (11:38)
== END 2025-01-28 11:58 | disposition home or self-care (01) ==
LOC: SERX 11:56
PROVIDERS: Emergency Provider Emergency Medicine
DX: K08.89 Other specified disorders of teeth and supporting structures (principal)
CPT/HCPCS: 96372; 99282; J1885; A9270

== ENCOUNTER 2025-01-29 11:13 | Emergency (ER) | payer MEDICAID, SELFPAY ==
[2025-01-29 11:26] VITALS: BP 131/84; PULSE 101; RESP 20; TEMP 36.6; O2SAT 98; BMI 28.8
[2025-01-29] MEDS: KETOROLAC INJ 60 MG/2 ML VIAL 30 MG IM (11:46)
[2025-01-29] MEDS: HYDROcodone/APAP 5/325 TABLET 1 TAB PO (11:47)
--- NOTE | 2025-01-29 11:49 | EDNOTE_ITS ---
<Statement entered by Makayla Vaca MD - 01/29/25 17:44> As co-signing physician, I was present and available for consult prn. I concur with the plan and care as documented by the midlevel provider. ED Dental RME/HPI General Chief complaint: Dental/Oral/Throat Stated complaint: TOOTH PAIN Time Seen by Provider: 01/29/25 11:20 Source: patient Arrival date/time: 01/29/25 11:13 29-year-old male with no known medical history presents to the emergency room with a chief complaint of right molar pain x 2 days Mode of arrival: ambulatory Limitations: no limitations Related Data Previous Rx's ?Medication ?Instructions ?Recorded hydrocodone 5 mg-acetaminophen 325 1 tab PO Q8H PRN pa in #8 tabs 08/21/21 mg tablet ibuprofen 600 mg tablet 600 mg PO TID PRN pain #14 t abs 08/21/21 tamsulosin 0.4 mg capsule (Flomax) 0.4 mg PO QDAY #10 caps 08/21/21 benzonatate 100 mg capsule 100 mg PO TID #14 caps 04/15 07/08 ibuprofen 600 mg tablet 600 mg PO Q6H #30 tabs 05/08 Saccharomyces boulardii 250 mg 250 mg PO BID #30 caps 01/27/25 capsule (Florastor) chlorhexidine gluconate 0.12 % 15 ml buccal BID #118 m L 01/27/25 mouthwash clindamycin HCl 300 mg capsule 300 mg PO Q6H #28 caps 01/27/25 (Cleocin HCl) naproxen 500 mg tablet,delayed 500 mg PO Q12H #14 tabs 01/27/25 release ibuprofen 800 mg tablet 800 mg PO Q8H #20 tabs 01/28 hydrocodone 5 mg-acetaminophen 325 1 tab PO BID PRN pa in #4 tabs 01/29/25 mg tablet Allergies Allergy/AdvReac Type Severity Reaction Status Date / Time amoxicillin Allergy Severe Hives Verified 01/29/25 11:15 Penicillins Allergy Severe Hives Verified 01/29/25 11:15 Review of Systems Review of Systems Systems Reviewed: All systems reviewed, normal except as documented Constitutional Constitutional: Reports system reviewed and no additional complaints, except as documented, Denies fatigue, Denies fever(s), Denies headache(s) and Denies weakness Eyes Eyes: Reports system reviewed and no additional complaints, except as documented, Denies blurry vision and Denies change in vision ENT Ears, Nose, Mouth, and Throat: Reports system reviewed and no additional complaints, except as documented, Reports dental pain, Denies otalgia, Denies headache(s), Denies nasal congestion, Denies throat swelling and Denies vertigo Cardiovascular Cardiovascular: Reports system reviewed and no additional complaints, except as documented, Denies chest pain, Denies dyspnea and Denies dyspnea on exertion Respiratory Respiratory: Reports system reviewed and no additional complaints, except as documented, Denies chest congestion, Denies cough, Denies dyspnea, Denies dyspnea on exertion and Denies wheezing Gastrointestinal Gastrointestinal: Reports system reviewed and no additional complaints, except as documented, Denies abdominal pain, Denies cramping, Denies nausea and Denies vomiting Genitourinary Genitourinary: Reports system reviewed and no additional complaints, except as documented, Denies dysuria and Denies hematuria Musculoskeletal Musculoskeletal: Reports system reviewed and no additional complaints, except as documented and Denies back pain Integumentary/Breasts Skin/Breast: Reports system reviewed and no additional complaints, except as documented and Denies wounds Neurologic Neurologic: Reports system reviewed and no additional complaints, except as documented, Denies confusion, Denies headache(s), Denies lack of coordination, Denies vertigo and Denies weakness Psychiatric Psychiatric: Reports system reviewed and no additional complaints, except as documented, Denies anxiety, Denies confusion, Denies depression, Denies paranoia, Denies suicidal ideation and Denies tactile hallucinations Endocrine Endocrine: Reports system reviewed and no additional complaints, except as documented and Denies fatigue Hematologic/Lymphatic Hematologic/Lymphatic: Reports system reviewed and no additional complaints, except as documented and Denies lymphadenopathy Allergic/Immunologic Allergic/Immunologic: Reports system reviewed and no additional complaints, except as documented, Denies throat swelling, Denies urticaria and Denies wheezing Past Medical History Past Medical History NEUROLOGIC: Negative Neurological Disorders or Seizures CARDIAC: Negative Cardiac Disorders or Congestive Heart Failure RESPIRATORY: Negative Chronic Obstructive Pulmonary Disease (COPD) GASTROINTESTINAL: Positive Gastrointestinal Disorders and Gastroesophageal Reflux Disease GENITOURINARY: Negative Genitourinary Disorders or Renal Disease MUSCULOSKELETAL: Positive Musculoskeletal Disorders ENDOCRINE: Negative Endocrine Disorders, Diabetes Mellitus Type 1 or Diabetes Mellitus Type 2 HEMATOLOGIC: Negative Blood Disorders PSYCHO/SOCIAL: Positive Depression and Anxiety OTHER HISTORY: Negative Autoimmune Disease, Blood Transfusions, Blood Transfusion Reaction, Anesthesia Reactions, MRSA, Clostridium Difficile or Cancer Family History FAMILY HISTORY: Negative Family Cardiac Disorders Surgical History SURGICAL: Negative Endocrine Surgery, Ear Surgery, Abdominal Surgery, Nephrectomy, Joint Replacement, Neurologic Surgery or Mastectomy Social History SMOKING STATUS: Current every day smoker SUBSTANCE USE: marijuana ED Exam General Limitations: Present no limitations General appearance: Present alert and in no apparent distress Head Head exam: Present atraumatic Eye Eye exam: Present normal appearance, PERRL and EOMI ENT ENT exam: Present normal exam, normal oropharynx and mucous membranes moist Expanded ENT Exam Teeth exam: Present dental tenderness #; Absent dental caries or fractured tooth # Teeth numbered: 2 1. Dental Tenderness Neck Neck exam: Present normal inspection, full ROM and trachea midline Chest Chest inspection: Present normal inspection and symmetric chest wall rise Respiratory Respiratory exam: Present normal lung sounds bilaterally Cardiovascular Cardiovascular exam: Present regular rate, normal rhythm and normal heart sounds Abdominal Exam Abdominal exam: Present soft and normal bowel sounds Extremities Exam Extremities exam: Present normal inspection and full ROM Back Exam Back exam: Present normal inspection and full ROM Neurological Exam Neurological exam: Present alert, oriented X3 and CN II-XII intact Psychiatric Psychiatric exam: Present normal affect and normal mood Skin Skin exam: Present warm, dry, intact and normal color Course Quality Measures none Orders Category Date Time Status HYDROcodone*/APAP 5/325 [Viola 5/325] Med 01/29/25 11:38 Discontinued 1 tab PO X1 ONE Ketorolac Inj [Toradol Inj] Med 01/29/25 11:38 Discontinued 30 mg IM X1 ONE Vital Signs Vital signs: Vital Signs Temperature 97.9 F 01/29/25 11:26 Pulse Rate 101 H 01/29/25 11:26 Respiratory Rate 20 01/29/25 11:26 Blood Pressure 131/84 H 01/29/25 11:26 Pulse Oximetry (%) 98 01/29/25 11:26 Oxygen Delivery Method Room Air 01/29/25 11:26 Dental / Oral MDM Narrative MDM Narrative:: 29-year-old male with no known medical history presents to the emergency room with a chief complaint of right molar pain x 2 days Patient is hemodynamically stable and in no apparent distress Physical examination shows tenderness and pain to the patient's right molar on the lower side. Patient states he was supposed to have an appointment with his dentist today but the dentist called in consult Patient states he is already on antibiotics that were prescribed here in the emergency room yesterday Patient was discharged and educated to follow-up with primary care provider in the next 24 to 48 hours and return to the emergency room for any evidence of worsening signs or symptoms Patient data External records reviewed:: [facility] previous records Clinical information provided by:: patient Social determinants that could affect healthcare access:: none Patient has the following chronic illnesses:: No chronic How is presenting disease/condition affected by chronic disease/condition?: no chronic disease Evaluation data The following diagnostics were reviewed and interpreted by me:: lab results and radiology exam(s) Lab and/or radiology exams considered but not ordered:: Labs radiology exams considered and ordered Interpretation Summary: N/A Medications / Prescriptions Medications or Prescriptions considered but not ordered:: Medication given Medication administrations:: Medication Administration History Discontinued Medications Hydrocodone Bitart/Acetaminophen (Hydrocodone/Apap 5/325 Tablet) 1 tab PO X1 ONE Stop: 01/29/25 11:39 Last Admin: 01/29/25 11:47 Dose: 1 tab Documented By: OA Ketorolac Tromethamine (Ketorolac Inj 60 Mg/2 Ml Vial) 30 mg IM X1 ONE Stop: 01/29/25 11:39 Last Admin: 01/29/25 11:46 Dose: 30 mg Documented By: OA Medication given Consultations Consultation(s) initiated? (list below): No Diagnosis Dental Differential Diagnosis: toothache and fracture of tooth Most likely diagnosis given after review of the tests above:: Tooth ache Admission Indicated Admission indicated?: not indicated Admission Request Was there a request for admission?: No Disposition Plan Disposition Plan: Discharge Discharge Attestation Discharge Attestation: The patient and all family members were given an opportunity to ask questions and understood the discharge instructions. Discharge instructions specifically effects, indications for sooner follow up or return to the emergency department, and the expected course of current diagnosis. Patient condition: Stable Discharge Plan Plan Patient Disposition: HOME (Self Care) Discharge Disposition comment: Stable Prescriptions/Referrals Prescriptions/Med Rec: New hydrocodone-acetaminophen 5-325 mg tablet 1 tab PO BID MDD 10mg PRN (Reason: pain) Qty: 4 0RF No Action hydrocodone-acetaminophen 5-325 mg tablet 1 tab PO Q8H MDD 3 PRN (Reason: pain) Qty: 8 0RF ibuprofen 600 mg tablet 600 mg PO TID PRN (Reason: pain) Qty: 14 0RF tamsulosin [Flomax] 0.4 mg capsule 0.4 mg PO QDAY Qty: 10 0RF clindamycin HCl [Cleocin HCl] 300 mg capsule 300 mg PO Q6H Qty: 28 0RF chlorhexidine gluconate 0.12 % mouthwash 15 ml buccal BID Qty: 118 0RF naproxen 500 mg tablet,delayed release (DR/EC) 500 mg PO Q12H Qty: 14 0RF Saccharomyces boulardii [Florastor] 250 mg capsule 250 mg PO BID Qty: 30 0RF ibuprofen 800 mg tablet 800 mg PO Q8H Qty: 20 0RF benzonatate 100 mg capsule 100 mg PO TID Qty: 14 0RF ibuprofen 600 mg tablet 600 mg PO Q6H Qty: 30 0RF Problem List Clinical Impression: Pain, dental Patient/Caregiver Discharge Instructions Education Materials: ED Dental Pain Additional Instructions: Please follow-up with your primary care provider in the next 24 to 48 hours Medication was sent to your pharmacy please pick it up and take it as indicated Antibiotics sent to your pharmacy please pick them up and take them as indicated For any evidence of worsening signs or symptoms return to the emergency room immediately Print Language: Ivorian Stand Alone Forms: [employer] Award Info., Work/School Release, Patient Portal Info Letter PA/DINING SERVICES DIRECTOR Supervising Physician PA/DINING SERVICES DIRECTOR Supervising Physician: Dr. Garcia
== END 2025-01-29 12:18 | disposition home or self-care (01) ==
LOC: SERX 11:53
PROVIDERS: Emergency Provider Emergency Medicine
DX: K08.89 Other specified disorders of teeth and supporting structures (principal)
CPT/HCPCS: 96372; 99282; J1885; A9270